=== PATIENT | female | born 1985 | race African-American/Black ===

== ENCOUNTER 2023-08-30 15:04 | Emergency (ER) | payer MEDICAID ==
[~2023-08-30] VITALS: Ht 167.6 cm; Wt 101.0 kg
[2023-08-30 15:05] VITALS: O2SAT 97
[2023-08-30] MEDS ORDERED: KETOROLAC 15MG/ML VIAL IM ONE (15:45)
[2023-08-30] MEDS ORDERED: ACETAMINOPHEN 325MG TABLET PO ONE (15:45)
[2023-08-30] MEDS ORDERED: ACETAMINOPHEN 325MG TABLET PO NR (16:00)
[2023-08-30] MEDS ORDERED: KETOROLAC 15MG/ML VIAL IM NR (16:01)
[2023-08-30 16:16] VITALS: BP 147/85
[2023-08-30] MEDS ORDERED: IBUP-2029 MT (16:47)
[2023-08-30] MEDS ORDERED: METH-653 MT (16:47)
[2023-08-30 17:54] VITALS: PULSE 99; RESP 16; TEMP 98.3
== END 2023-08-30 17:56 | disposition home or self-care (01) ==
LOC: ER 15:04
DX: M25.561 Pain in right knee (principal); V49.9XXA Car occupant (driver) (passenger) injured in unspecified traffic accident, initial encounter; Y93.89 Activity, other specified; Y92.89 Other specified places as the place of occurrence of the external cause; Y99.8 Other external cause status
CPT/HCPCS: 99284; 73562; 73590; 73610; 96372; J1885